=== PATIENT | male | born 1970 | race American Indian/Alaskan Native ===

== ENCOUNTER 2017-11-03 11:32 | Emergency (ER) | payer MEDICARE ==
[2017-11-03 11:32] VITALS: BMI 29.0
[2017-11-03 11:46] VITALS: RESP 18; O2SAT 98
[2017-11-03 12:41] LABS: BASO # 0.1 K/uL (0.0-0.2); BASO % 0.9 % (0.0-2.0); EOS # 0.1 K/uL (0.0-0.7); EOS % 1.8 % (0.0-4.0); HEMOGLOBIN 16.6 g/dL (12.0-18.0); LYMPH # 1.9 K/uL (1.0-4.3); MEAN CELL VOLUME 87.4 fL (80.0-94.0); MEAN CORPUSCULAR HEMOGLOBIN 29.9 pg (27.0-31.0); MEAN CORPUSCULAR HGB CONC 34.2 g/dL (33.0-37.0); MONO # 0.5 K/uL (0.0-0.8); MONO % 6.3 % (0.0-10.0); NEUT # 5.5 K/uL (1.8-7.0); NRBC % 0.1 % (0.0-2.0); RBC 5.54 Mil/uL (4.40-5.90); RED CELL DISTRIBUTION WIDTH 14.8 % (11.5-14.5); WHITE BLOOD COUNT 8.1 K/uL (4.8-10.8)
--- NOTE | 2017-11-03 12:42 | C.PDOC ---
History Of Present Illness 47yo male with history of CHF, presents to ER with complaint of increasing abdominal distention for the past week. He denies any history of abdominal surgeries and states he does not have abdominal pain. He also denies any nausea , vomiting and diarrhea and states he had a normal bowel movement this morning. Patient does report occasional shortness of breath over the past week and states he has been noncompliant with his CHF medication. He denies any chest pain or fevers. He offers no other medical complaints. Time Seen by Provider: 11/03/17 11:46 Chief Complaint (Nursing): Abdominal Pain History Per: Patient History/Exam Limitations: no limitations Onset/Duration Of Symptoms: Days (1 week) Current Symptoms Are (Timing): Still Present Associated Symptoms: denies: Fever, Chest Pain Past Medical History Reviewed: Historical Data, Nursing Documentation, Vital Signs Vital Signs: Last Vital Signs Temp 97.9 F 11/03/17 11:43 Pulse 86 11/03/17 11:43 Resp 18 11/03/17 12:10 BP 128/92 H 11/03/17 11:43 Pulse Ox 98 11/03/17 12:45 - Medical History PMH: Asthma, Bronchitis, CAD, Cardia Arrhythmia, CHF, HTN, Sleep Apnea Denies: Chronic Kidney Disease Surgical History: Pacemaker (AICD) - [employer] Procedures INSERTION OF INFUSION DEV INTO SUP VENA CAVA, PERC APPROACH (07/17/16) ULTRASONOGRAPHY OF SUPERIOR VENA CAVA, GUIDANCE (07/17/16) Family History: States: No Known Family Hx, Unknown Family Hx - Social History Hx Tobacco Use: Yes Hx Alcohol Use: No Hx Substance Use: No - Immunization History Hx Tetanus Toxoid Vaccination: No Hx Influenza Vaccination: No Hx Pneumococcal Vaccination: No Review Of Systems Except As Marked, All Systems Reviewed And Found Negative. Constitutional: Negative for: Fever, Chills Cardiovascular: Negative for: Chest Pain Respiratory: Positive for: Shortness of Breath (occasional episodes for past week) Gastrointestinal: Positive for: Other (abdominal distention x 1 week). Negative for: Nausea, Vomiting, Abdominal Pain, Diarrhea Physical Exam - Physical Exam Appears: Non-toxic, No Acute Distress Skin: Normal Color Eye(s): bilateral: Normal Inspection Neck: Normal ROM, Supple Chest: Symmetrical Cardiovascular: Rhythm Regular Respiratory: Normal Breath Sounds, No Wheezing Gastrointestinal/Abdominal: Soft, No Tenderness, Distention (abdomen obese, mild distention noted) Neurological/Psych: Oriented x3 ED Course And Treatment - Laboratory Results Result Diagrams: 11/03/17 12:33 11/03/17 12:33 O2 Sat by Pulse Oximetry: 98 (RA) Pulse Ox Interpretation: Normal Progress Note: XR obstructive series, labs ordered. Disposition Counseled Patient/Family Regarding: Studies Performed, Diagnosis, Need For Followup - Disposition Referrals: Derick Murphy MD [Staff Provider] - Disposition: HOME/ ROUTINE Disposition Time: 14:00 Condition: STABLE Additional Instructions: FOLLOW UP WITH YOUR DOCTOR IN 1-2 DAYS TAKE YOUR MEDICATIONS DIRECTED RETURN TO ER IF SYMPTOMS WORSEN Forms: [facility] (Armenian), General Discharge Instructions Print Language: TURKMEN - POA Present On Arrival: None - Clinical Impression Clinical Impression: Abdominal distension - Scribe Statement The provider has reviewed the documentation as recorded by the Scribe (Melisa Sellers) Provider Attestation: All medical record entries made by the Scribe were at my direction and personally dictated by me. I have reviewed the chart and agree that the record accurately reflects my personal performance of the history, physical exam, medical decision making, and the department course for this patient. I have also personally directed, reviewed, and agree with the discharge instructions and disposition.
[2017-11-03 12:46] LABS: URINE BILIRUBIN NEGATIVE (NEGATIVE); URINE BLOOD 1+ (NEGATIVE); URINE CLARITY Clear (Clear); URINE COLOR Yellow (YELLOW); URINE GLUCOSE (UA) NORMAL (Normal); URINE LEUKOCYTE ESTERASE NEG Leu/uL (Negative); URINE NITRATE NEGATIVE (NEGATIVE); URINE PROTEIN NEGATIVE (NEGATIVE); URINE UROBILINOGEN NORMAL mg/dL (0.2-1.0)
[2017-11-03 12:54] LABS: PROTHROMBIN TIME 11.2 SECONDS (9.7-12.2)
[2017-11-03 12:59] LABS: ALB/GLOB RATIO 1.2 (1.0-2.1); ALT/SGPT 28 U/L (21-72); AST/SGOT 28 U/L (17-59); BLOOD UREA NITROGEN 19 mg/dL (9-20); CALCIUM 9.6 mg/dl (8.6-10.4); GFR AFRICAN-AMERICAN > 60; GFR NON-AFRICAN AMERICAN 51
--- NOTE | 2017-11-03 13:05 | RAD ---
PROCEDURE: Radiographs of the chest and abdomen (obstructive series) HISTORY: ABDOMINAL DISTENSION COMPARISON: None TECHNIQUE: AP radiograph of the chest, with upright and supine radiographs of the abdomen. FINDINGS: CHEST: Heart size appears top normal. Single lead left-sided AICD. No focal consolidation. No pleural effusion. No pneumothorax. Please note that chest x-ray has limited sensitivity for the detection of pulmonary masses. ABDOMEN AND PELVIS: Nonobstructive bowel gas pattern. No definite free air. Mild elevation of the right hemidiaphragm. No acute osseous abnormality is detected. IMPRESSION: No acute findings identified. See above.
[2017-11-03 13:07] LABS: B-TYPE NATRIURETIC PEPTIDE 575 pg/mL (0-450); CK-MB 0.79 ng/mL (0.0-3.38)
[2017-11-03 14:12] VITALS: BP 123/84; PULSE 77; TEMP 98.2
== END 2017-11-03 14:10 | disposition home or self-care (01) ==
LOC: C.ER 11:32
DX: R14.0 Abdominal distension (gaseous) (principal); I11.0 Hypertensive heart disease with heart failure; I50.9 Heart failure, unspecified; F17.210 Nicotine dependence, cigarettes, uncomplicated

== ENCOUNTER 2018-02-08 08:50 | Emergency (ER) | payer MEDICARE ==
[2018-02-08 08:51] VITALS: BMI 29.0
[2018-02-08 09:01] VITALS: O2SAT 99
--- NOTE | 2018-02-08 09:54 | C.PDOC ---
History Of Present Illness 36-yfyid-eyl male with Hx of HTN, CHF, and implanted defibrillator for 11 years presents to ED for complaints of SOB, abdominal cramping, and cough associated with phlegm that began today. Denies headache, sore throat, chest pain, or throat itchiness or scratchiness. 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 Patient also states Hx of smoking and occasional drinking. Time Seen by Provider: 02/08/18 09:29 Chief Complaint (Nursing): Palpitations History Per: Patient History/Exam Limitations: no limitations Onset/Duration Of Symptoms: Hrs Current Symptoms Are (Timing): Still Present Recent travel outside of the [place]: No Past Medical History Reviewed: Historical Data, Nursing Documentation, Vital Signs Vital Signs: Last Vital Signs Temp 98.4 F 02/08/18 13:12 Pulse 82 02/08/18 13:12 Resp 18 02/08/18 13:12 BP 136/90 02/08/18 13:12 Pulse Ox 99 02/08/18 13:12 - Medical History PMH: Asthma, Bronchitis, CAD, Cardia Arrhythmia, CHF, HTN, Sleep Apnea Surgical History: Pacemaker (AICD) - [employer] Procedures INSERTION OF INFUSION DEV INTO SUP VENA CAVA, PERC APPROACH (07/17/16) ULTRASONOGRAPHY OF SUPERIOR VENA CAVA, GUIDANCE (07/17/16) Family History: States: Unknown Family Hx - Social History Hx Tobacco Use: Yes Hx Alcohol Use: Yes Hx Substance Use: No - Immunization History Hx Tetanus Toxoid Vaccination: No Hx Influenza Vaccination: No Hx Pneumococcal Vaccination: No Review Of Systems Constitutional: Negative for: Fever, Chills Cardiovascular: Negative for: Chest Pain Respiratory: Positive for: Cough (with phlegm ), Shortness of Breath Gastrointestinal: Positive for: Abdominal Pain. Negative for: Nausea, Vomiting , Diarrhea Genitourinary: Negative for: Dysuria Skin: Negative for: Rash Neurological: Negative for: Weakness, Numbness, Headache Physical Exam - Physical Exam Appears: Non-toxic, No Acute Distress Skin: Warm, Dry Head: Atraumatic, Normacephalic Eye(s): bilateral: Normal Inspection, PERRL, EOMI Oral Mucosa: Moist Neck: Supple Chest: Symmetrical, No Tenderness Cardiovascular: Rhythm Regular, No Murmur Respiratory: Decreased Breath Sounds (at bases), No Rales, No Rhonchi, No Wheezing Gastrointestinal/Abdominal: Soft, No Tenderness Extremity: Normal ROM, No Pedal Edema Extremity: Bilateral: Normal Color And Temperature, Normal ROM Neurological/Psych: Oriented x3, Normal Speech, Normal Cognition Gait: Steady ED Course And Treatment - Laboratory Results Result Diagrams: 02/08/18 10:16 02/08/18 10:16 O2 Sat by Pulse Oximetry: 99 (RA) Pulse Ox Interpretation: Normal - Other Rad CXR X-Ray: Viewed By Me, Read By Radiologist Interpretation: PROCEDURE: CHEST RADIOGRAPH, 1 VIEW. HISTORY: SOB. COMPARISON: Chest radiographs 07/17/2016. FINDINGS: LUNGS: No acute pulmonary disease appreciated bilaterally. PLEURA: No pneumothorax or pleural fluid seen. CARDIOVASCULAR: Cardiomegaly reiterated. Parotid pacemaker/ implanted defibrillator again identified. OSSEOUS STRUCTURES: No significant abnormalities. VISUALIZED UPPER ABDOMEN: Normal. OTHER FINDINGS: None. IMPRESSION: Stable cardiomegaly. No interval acute cardiopulmonary disease appreciable. Medical Decision Making Medical Decision Making: Ordered blood work, EKG, and CXR. Disposition Counseled Patient/Family Regarding: Studies Performed, Diagnosis, Need For Followup - Disposition Referrals: Rao Murphy MD [Staff Provider] - Disposition: HOME/ ROUTINE Disposition Time: 12:10 Condition: STABLE Instructions: Heart Failure, Adult (DC) Forms: [facility] (Occitan), General Discharge Instructions - POA Present On Arrival: None - Clinical Impression Clinical Impression: Chronic CHF - Scribe Statement The provider has reviewed the documentation as recorded by the Scribe Candice Bergman All medical record entries made by the Scribe were at my direction and personally dictated by me. I have reviewed the chart and agree that the record accurately reflects my personal performance of the history, physical exam, medical decision making, and the department course for this patient. I have also personally directed, reviewed, and agree with the discharge instructions and disposition.
[2018-02-08 10:18] LABS: BASO # 0.1 K/uL (0.0-0.2); BASO % 0.7 % (0.0-2.0); EOS # 0.1 K/uL (0.0-0.7); EOS % 1.1 % (0.0-4.0); HEMOGLOBIN 15.8 g/dL (12.0-18.0); LYMPH # 1.4 K/uL (1.0-4.3); LYMPH % 17.7 % (20.0-40.0); MEAN CELL VOLUME 87.1 fL (80.0-94.0); MEAN CORPUSCULAR HEMOGLOBIN 30.3 pg (27.0-31.0); MEAN CORPUSCULAR HGB CONC 34.7 g/dL (33.0-37.0); MEAN PLATELET VOLUME 8.9 fL (7.2-11.7); MONO # 0.5 K/uL (0.0-0.8); MONO % 6.5 % (0.0-10.0); NEUT # 5.9 K/uL (1.8-7.0); RBC 5.21 Mil/uL (4.40-5.90); RED CELL DISTRIBUTION WIDTH 14.3 % (11.5-14.5)
[2018-02-08 10:30] LABS: ALB/GLOB RATIO 1.2 (1.0-2.1); ALT/SGPT 31 U/L (21-72); AST/SGOT 45 U/L (17-59); BLOOD UREA NITROGEN 22 mg/dL (9-20); CALCIUM 9.3 mg/dl (8.6-10.4); GFR AFRICAN-AMERICAN > 60; GFR NON-AFRICAN AMERICAN 55
[2018-02-08 10:42] LABS: B-TYPE NATRIURETIC PEPTIDE 779 pg/mL (0-450)
[2018-02-08] MEDS ORDERED: Aluminum Hydroxide/Magnesium Hydroxide Susp (30 mL) PO STA (11:47)
[2018-02-08] MEDS ORDERED: Alum-Mag Hydrox-Simethicone Susp (30 mL) ONE (11:51)
--- NOTE | 2018-02-08 13:04 | RAD ---
PROCEDURE: CHEST RADIOGRAPH, 1 VIEW HISTORY: SOB COMPARISON: Chest radiographs 07/17/2016. FINDINGS: LUNGS: No acute pulmonary disease appreciated bilaterally. PLEURA: No pneumothorax or pleural fluid seen. CARDIOVASCULAR: Cardiomegaly reiterated. Parotid pacemaker/implanted defibrillator again identified. OSSEOUS STRUCTURES: No significant abnormalities. VISUALIZED UPPER ABDOMEN: Normal. OTHER FINDINGS: None. IMPRESSION: Stable cardiomegaly. No interval acute cardiopulmonary disease appreciable.
[2018-02-08 13:12] VITALS: BP 136/90; PULSE 82; RESP 18; TEMP 98.4
== END 2018-02-08 13:12 | disposition home or self-care (01) ==
LOC: C.ER 08:50
DX: I11.0 Hypertensive heart disease with heart failure (principal); I50.9 Heart failure, unspecified; Z95.810 Presence of automatic (implantable) cardiac defibrillator; F17.210 Nicotine dependence, cigarettes, uncomplicated
CPT/HCPCS: 71045; 80053; 83880; 84484; 85025; 96374; 99285; J1940

== ENCOUNTER 2018-09-20 10:40 | Emergency (ER) | payer MEDICARE ==
[2018-09-20 10:41] VITALS: BMI 29.0
[2018-09-20 11:58] LABS: BASO # 0.1 K/uL (0.0-0.2); BASO % 0.8 % (0.0-2.0); EOS # 0.1 K/uL (0.0-0.7); EOS % 1.8 % (0.0-4.0); HEMOGLOBIN 15.2 g/dL (12.0-18.0); LYMPH # 1.5 K/uL (1.0-4.3); LYMPH % 18.2 % (20.0-40.0); MEAN CELL VOLUME 90.6 fL (80.0-94.0); MEAN CORPUSCULAR HEMOGLOBIN 30.3 pg (27.0-31.0); MEAN CORPUSCULAR HGB CONC 33.4 g/dL (33.0-37.0); MEAN PLATELET VOLUME 9.3 fL (7.2-11.7); MONO # 0.5 K/uL (0.0-0.8); MONO % 5.6 % (0.0-10.0); NEUT # 6.2 K/uL (1.8-7.0); NEUT % 73.6 % (50.0-75.0); NRBC % 0.1 % (0.0-2.0); RBC 5.03 Mil/uL (4.40-5.90); RED CELL DISTRIBUTION WIDTH 14.5 % (11.5-14.5); WHITE BLOOD COUNT 8.4 K/uL (4.8-10.8)
--- NOTE | 2018-09-20 12:13 | C.PDOC ---
History Of Present Illness 48 year old male with a history of asthma and CHF (not on Lasix) presents to the emergency department with complaints of shortness of breath for the last 2 days intermittently. Patient states that his symptoms are not assorted with exertion or laying flat, and he denies cough, fever, chest pain, and leg edema. Time Seen by Provider: 09/20/18 11:02 Chief Complaint (Nursing): Shortness Of Breath History Per: Patient History/Exam Limitations: no limitations Onset/Duration Of Symptoms: Days (2), Intermittent Episodes Current Symptoms Are (Timing): Still Present Associated Symptoms: Other (shortness of breath). denies: Fever, Chest Pain, Bloody Cough, Productive Cough, Ankle/Leg Swelling Past Medical History Reviewed: Historical Data, Nursing Documentation, Vital Signs Vital Signs: Last Vital Signs Temp 97.4 F L 09/20/18 10:52 Pulse 77 09/20/18 10:52 Resp 18 09/20/18 10:52 BP 110/74 09/20/18 10:52 Pulse Ox 97 09/20/18 10:52 - Medical History PMH: Asthma, Bronchitis, CAD, Cardia Arrhythmia, CHF, HTN, Sleep Apnea Denies: Chronic Kidney Disease Surgical History: Pacemaker (AICD) - [facility] Procedures INSERTION OF INFUSION DEV INTO SUP VENA CAVA, PERC APPROACH (07/17/16) ULTRASONOGRAPHY OF SUPERIOR VENA CAVA, GUIDANCE (07/17/16) Family History: States: No Known Family Hx - Social History Hx Tobacco Use: Yes Hx Alcohol Use: Yes Hx Substance Use: No - Immunization History Hx Tetanus Toxoid Vaccination: No Hx Influenza Vaccination: No Hx Pneumococcal Vaccination: No Review Of Systems Constitutional: Negative for: Fever, Chills Cardiovascular: Negative for: Chest Pain, Edema Respiratory: Positive for: Shortness of Breath. Negative for: Cough Physical Exam - Physical Exam Appears: Non-toxic, No Acute Distress Skin: Normal Color, Warm, Dry Head: Atraumatic, Normacephalic Eye(s): bilateral: Normal Inspection, PERRL, EOMI Oral Mucosa: Moist Neck: Normal, Supple Chest: Symmetrical, No Tenderness, Other (left upper chest wall pacemaker) Cardiovascular: Rhythm Regular, No Murmur Respiratory: Normal Breath Sounds, No Rales, No Rhonchi, No Wheezing, Other (speaking in full sentences) Gastrointestinal/Abdominal: Soft, No Tenderness Extremity: Normal ROM, No Tenderness, No Pedal Edema, No Swelling Neurological/Psych: Oriented x3, Normal Speech, Normal Cognition ED Course And Treatment - Laboratory Results Result Diagrams: 09/20/18 11:54 09/20/18 11:54 ECG: Interpreted By Me, Viewed By Me ECG Rhythm: Sinus Rhythm ECG Interpretation: Abnormal Interpretation Of ECG: Normal sinus rhythm at 77bpm. Normal axis. T-wave inversion in 2, 3, AVL, AVG, V4, V5, V6. No acute ST changes. Rate From EC O2 Sat by Pulse Oximetry: 97 - Other Rad CXR X-Ray: Viewed By Me, Read By Radiologist Interpretation: IMPRESSION: Cardiomegaly. Single lead left-sided AICD. Progress Note: Plan: EKG. Chemistry. CBC. CXR Disposition Counseled Patient/Family Regarding: Studies Performed, Diagnosis, Need For Followup, Rx Given - Disposition Referrals: Rao Murphy MD [Staff Provider] - Derick Murphy MD [Staff Provider] - Disposition: HOME/ ROUTINE Disposition Time: 14:40 Condition: STABLE Additional Instructions: FOLLOW UP WITH YOUR DOCTOR IN 1-2 DAYS USE MEDICATION DAILY RETURN TO ER IF SYMPTOMS WORSEN Prescriptions: Furosemide [Lasix] 20 mg PO DAILY #30 tab Instructions: Heart Failure, Adult (DC) Forms: [facility] (Jordanian) Print Language: IVORIAN - Clinical Impression Clinical Impression: CHF (congestive heart failure) - Scribe Statement The provider has reviewed the documentation as recorded by the Scribe (Shane Mcarthur) Provider Attestation: All medical record entries made by the Scribe were at my direction and personally dictated by me. I have reviewed the chart and agree that the record accurately reflects my personal performance of the history, physical exam, medical decision making, and the department course for this patient. I have also personally directed, reviewed, and agree with the discharge instructions and disposition.
--- NOTE | 2018-09-20 12:16 | RAD ---
HISTORY: SOB COMPARISON: Chest x-ray performed 02/08/18 TECHNIQUE: Chest, one view. FINDINGS: LUNGS: No focal consolidation. Please note that chest x-ray has limited sensitivity for the detection of pulmonary masses. PLEURA: No significant pleural effusion identified. No definite pneumothorax . CARDIOVASCULAR: Single lead left-sided AICD. Cardiomegaly. No significant atherosclerotic calcification present. OSSEOUS STRUCTURES: No acute osseous abnormality identified. VISUALIZED UPPER ABDOMEN: Unremarkable. OTHER FINDINGS: None. IMPRESSION: Cardiomegaly. Single lead left-sided AICD.
[2018-09-20 12:19] LABS: ALB/GLOB RATIO 1.4 (1.0-2.1); ALBUMIN 3.5 g/dL (3.5-5.0); ALT/SGPT 35 U/L (21-72); AST/SGOT 28 U/L (17-59); BLOOD UREA NITROGEN 24 mg/dL (9-20); CALCIUM 8.5 mg/dl (8.6-10.4); GFR NON-AFRICAN AMERICAN 50
[2018-09-20 12:47] LABS: B-TYPE NATRIURETIC PEPTIDE 1850 pg/mL (0-450)
[2018-09-20 14:58] VITALS: BP 124/76; PULSE 76; RESP 20; TEMP 98.2; O2SAT 98
--- NOTE | 2018-09-21 16:13 | CARD ---
APPROVED REPORT Date of service: 09/20/2018 EKG Measurement Heart [id number] <Conclusion> Normal sinus rhythm Possible Left atrial enlargement Left ventricular hypertrophy T wave abnormality, consider inferolateral ischemia Prolonged QT Abnormal ECG
--- NOTE | 2018-09-21 16:13 | CARD ---
APPROVED REPORT Date of service: 09/20/2018 EKG Measurement Heart [id number] <Conclusion> Normal sinus rhythm Possible Left atrial enlargement Left ventricular hypertrophy T wave abnormality, consider inferolateral ischemia Prolonged QT Abnormal ECG
== END 2018-09-20 14:58 | disposition home or self-care (01) ==
LOC: C.ER 10:40
DX: I50.9 Heart failure, unspecified (principal); I10 Essential (primary) hypertension; I25.10 Atherosclerotic heart disease of native coronary artery without angina pectoris; Z72.0 Tobacco use
CPT/HCPCS: 71045; 80053; 82550; 82553; 83880; 84484; 85025; 93005; 96374; 99284; J1940

== ENCOUNTER 2018-12-26 03:28 | Emergency (ER) | payer MEDICARE ==
[2018-12-26 03:28] VITALS: BMI 29.0
--- NOTE | 2018-12-26 03:45 | C.PDOC ---
History Of Present Illness 48 year old male presents to the ED c/o SOB associated with non productive cough for the past 4 days. Patient also reports he also ran out of his medications 4 days ago as well. Patient speaking in full sentences. Patient denies fever, chills, headache, CP, palpitations, headache, weakness, numbness. Time Seen by Provider: 12/26/18 03:45 Chief Complaint (Nursing): Shortness Of Breath History Per: Patient History/Exam Limitations: no limitations Onset/Duration Of Symptoms: Days (4) Current Symptoms Are (Timing): Still Present Initiating Event: Out Of Medications Quality: Tightness Exacerbating Factor(s): Coughing Current Respiratory Medications: See Home Med List Associated Symptoms: Productive Cough (non) Recent travel outside of the [place]: No Additional History Per: Patient Past Medical History Reviewed: Historical Data, Nursing Documentation, Vital Signs Vital Signs: Last Vital Signs Temp 98.5 F 12/26/18 03:34 Pulse 98 H 12/26/18 03:34 Resp 16 12/26/18 03:34 BP 139/105 H 12/26/18 03:34 Pulse Ox 97 12/26/18 03:34 - Medical History PMH: Asthma, Bronchitis, CAD, Cardia Arrhythmia, CHF, HTN, Sleep Apnea Denies: Chronic Kidney Disease Surgical History: Pacemaker (AICD) - [facility] Procedures INSERTION OF INFUSION DEV INTO SUP VENA CAVA, PERC APPROACH (07/17/16) ULTRASONOGRAPHY OF SUPERIOR VENA CAVA, GUIDANCE (07/17/16) Family History: States: Unknown Family Hx - Social History Hx Tobacco Use: Yes Hx Alcohol Use: Yes Hx Substance Use: No - Immunization History Hx Tetanus Toxoid Vaccination: No Hx Influenza Vaccination: No Hx Pneumococcal Vaccination: No Review Of Systems Constitutional: Negative for: Fever, Chills Cardiovascular: Negative for: Chest Pain, Palpitations Respiratory: Positive for: Cough, Shortness of Breath. Negative for: Sputum Gastrointestinal: Negative for: Nausea, Vomiting, Abdominal Pain Skin: Negative for: Rash Neurological: Negative for: Weakness, Numbness, Headache, Dizziness Physical Exam - Physical Exam Appears: Non-toxic, No Acute Distress Skin: Warm, Dry Head: Normacephalic Eye(s): bilateral: Normal Inspection Neck: Supple Chest: Symmetrical Cardiovascular: Rhythm Regular Respiratory: No Rales, Rhonchi (scattered), No Wheezing Gastrointestinal/Abdominal: Soft, No Tenderness, No Guarding, No Rebound Extremity: Bilateral: Atraumatic, Normal Color And Temperature, Normal ROM Neurological/Psych: Oriented x3, Normal Speech, Normal Cognition Gait: Steady ED Course And Treatment - Laboratory Results Result Diagrams: 12/26/18 04:12 12/26/18 04:12 ECG: Interpreted By Me, Viewed By Me ECG Rhythm: Sinus Rhythm (95), Nonspecific Changes (unchanged from 09/30/18) O2 Sat by Pulse Oximetry: 97 (ON RA) Pulse Ox Interpretation: Normal - Radiology CXR: Interpreted by Me, Viewed By Me CXR Interpretation: Yes: Infiltrates (rll), Cardiomegaly, Other (pacer left chest). No: Fracture Progress Note: Plan: - VBG. - EKG. - Labs. - CXR. - Blood culture. - UA Reevaluation Time: 06:30 Reassessment Condition: Improved Disposition Counseled Patient/Family Regarding: Studies Performed, Diagnosis, Need For Followup, Rx Given - Disposition Referrals: Derick Murphy MD [Staff Provider] - Disposition: HOME/ ROUTINE Disposition Time: 03:45 Condition: FAIR Additional Instructions: Please return if symptoms recur Prescriptions: Azithromycin [Zithromax Tri-Suresh] 500 mg PO DAILY #3 tablet Carvedilol [Coreg] 6.25 mg PO BID #60 tab Furosemide [Lasix] 20 mg PO DAILY #30 tablet Sacubitril/Valsartan [Entresto 49 mg-51 mg Tablet] 1 each PO DAILY #30 tablet Instructions: High Blood Pressure (DC), Acute Bronchitis, Adult (DC) Forms: [facility] (Venezuelan) - Clinical Impression Clinical Impression: Bronchitis, Hypertension - Scribe Statement The provider has reviewed the documentation as recorded by the Scribe Raphael Vega All medical record entries made by the Scribe were at my direction and personally dictated by me. I have reviewed the chart and agree that the record accurately reflects my personal performance of the history, physical exam, medical decision making, and the department course for this patient. I have also personally directed, reviewed, and agree with the discharge instructions and disposition.
[2018-12-26 04:20] LABS: BASO # 0.1 K/uL (0.0-0.2); BASO % 1.4 % (0.0-2.0); EOS # 0.1 K/uL (0.0-0.7); EOS % 1.3 % (0.0-4.0); HEMOGLOBIN 14.4 g/dL (12.0-18.0); LYMPH # 1.6 K/uL (1.0-4.3); LYMPH % 19.4 % (20.0-40.0); MEAN CELL VOLUME 90.7 fL (80.0-94.0); MEAN CORPUSCULAR HEMOGLOBIN 30.4 pg (27.0-31.0); MEAN CORPUSCULAR HGB CONC 33.5 g/dL (33.0-37.0); MEAN PLATELET VOLUME 9.1 fL (7.2-11.7); MONO # 0.4 K/uL (0.0-0.8); MONO % 5.5 % (0.0-10.0); NEUT # 5.9 K/uL (1.8-7.0); NEUT % 72.4 % (50.0-75.0); NRBC % 0.1 % (0.0-2.0); RBC 4.75 Mil/uL (4.40-5.90); RED CELL DISTRIBUTION WIDTH 14.9 % (11.5-14.5); WHITE BLOOD COUNT 8.1 K/uL (4.8-10.8)
[2018-12-26 04:26] LABS: INR 1.1; PROTHROMBIN TIME 12.4 SECONDS (9.7-12.2)
[2018-12-26 04:28] LABS: ALB/GLOB RATIO 1.5 (1.0-2.1); ALBUMIN 3.5 g/dL (3.5-5.0); CALCIUM 9.1 mg/dl (8.6-10.4)
[2018-12-26] MEDS ORDERED: Piperacillin/Tazobact 3.375 gm 100 ML IVPB STA (04:46)
[2018-12-26 04:51] LABS: VENOUS BLOOD GAS BASE EXCESS -0.5 mmol/L (0.0-2.0); VENOUS BLOOD GAS PCO2 39 mmHg (40-60); VENOUS BLOOD GAS PO2 44 mm/Hg (30-55)
[2018-12-26] MEDS ORDERED: Piperacillin/Tazobact 3.375 gm 100 ML IVPB ONE (04:52)
[2018-12-26 05:55] VITALS: BP 119/87; PULSE 79; RESP 22; TEMP 98.4
[2018-12-26 06:33] VITALS: O2SAT 97
--- NOTE | 2018-12-26 08:33 | RAD ---
Chest x-ray single frontal view History: Shortness of breath. Comparison: 07/17/2016 Findings: Confluent increased markings in the right hilar region extending to medial right lower lung zone concerning for possible infiltrate. Post treatment interval follow-up may be helpful to ensure resolution and exclude underlying residual disease. Additional patchy increased markings at the left lung base. Cardiomegaly. Left-sided pacemaker. Degenerative changes in the spine. Impression: Confluent increased markings in the right hilar region extending to medial right lower lung zone concerning for possible infiltrate. Post treatment interval follow-up may be helpful to ensure resolution and exclude underlying residual disease. Additional patchy increased markings at the left lung base. Cardiomegaly. Left-sided pacemaker.
--- NOTE | 2018-12-29 15:40 | CARD ---
APPROVED REPORT Date of service: 12/26/2018 EKG Measurement Heart [id number] <Conclusion> Sinus rhythm with occasional premature ventricular complexes Possible Left atrial enlargement Left ventricular hypertrophy with repolarization abnormality Abnormal ECG
== END 2018-12-26 06:52 | disposition home or self-care (01) ==
LOC: C.ER 03:28
DX: J40 Bronchitis, not specified as acute or chronic (principal); I10 Essential (primary) hypertension; I50.9 Heart failure, unspecified; I25.10 Atherosclerotic heart disease of native coronary artery without angina pectoris; Z72.0 Tobacco use; Z95.810 Presence of automatic (implantable) cardiac defibrillator
CPT/HCPCS: 71045; 80053; 82803; 85025; 85610; 85730; 87040; 93005; 96365; 99285; J2543

== ENCOUNTER 2018-12-29 04:59 | Emergency (ER) | payer MEDICARE ==
[2018-12-29 04:59] VITALS: BMI 29.0
[2018-12-29] MEDS ORDERED: Albuterol 0.083% Inhal Sol (2.5 mg/3 mL) UD ONE (05:06)
--- NOTE | 2018-12-29 05:25 | C.PDOC ---
History Of Present Illness Patient presents with SOB. He was seen here with similar symptoms a few days ago and started on meds, however, he did not take them except for some of the antibiotics. Patient still smokes. Denies chest pain, fever, or chills. Time Seen by Provider: 12/29/18 05:25 Chief Complaint (Nursing): Shortness Of Breath History Per: Patient History/Exam Limitations: no limitations Onset/Duration Of Symptoms: Hrs Current Symptoms Are (Timing): Still Present Current Respiratory Medications: See Home Med List Severity: Moderate Pain Scale Rating Of: 4 Associated Symptoms: denies: Fever, Chills, Chest Pain Recent travel outside of the [place]: No Past Medical History Reviewed: Historical Data, Nursing Documentation, Vital Signs - Medical History PMH: Asthma, Bronchitis, CAD, Cardia Arrhythmia, CHF, HTN, Sleep Apnea Denies: Chronic Kidney Disease Surgical History: Pacemaker (AICD) - [employer] Procedures INSERTION OF INFUSION DEV INTO SUP VENA CAVA, PERC APPROACH (07/17/16) ULTRASONOGRAPHY OF SUPERIOR VENA CAVA, GUIDANCE (07/17/16) Family History: States: No Known Family Hx - Social History Hx Tobacco Use: Yes Hx Alcohol Use: Yes Hx Substance Use: No - Immunization History Hx Tetanus Toxoid Vaccination: No Hx Influenza Vaccination: No Hx Pneumococcal Vaccination: No Review Of Systems Constitutional: Negative for: Fever, Chills Cardiovascular: Negative for: Chest Pain, Palpitations Respiratory: Positive for: Shortness of Breath. Negative for: Cough Gastrointestinal: Negative for: Nausea, Vomiting Neurological: Negative for: Weakness, Numbness Physical Exam - Physical Exam Appears: Non-toxic Skin: Warm, Dry Head: Normacephalic Eye(s): bilateral: Normal Inspection Oral Mucosa: Moist Neck: Trachea Midline, Supple Chest: Symmetrical, No Tenderness Cardiovascular: Rhythm Regular Respiratory: No Rales, No Rhonchi, No Wheezing Gastrointestinal/Abdominal: Soft, No Tenderness Neurological/Psych: Oriented x3 ED Course And Treatment O2 Sat by Pulse Oximetry: 99 Pulse Ox Interpretation: Normal Progress Note: Duoneb administered. Reevaluation Time: 06:31 Reassessment Condition: Improved Disposition Counseled Patient/Family Regarding: Studies Performed, Diagnosis, Need For Followup - Disposition Disposition: HOME/ ROUTINE Disposition Time: 05:25 Condition: FAIR Additional Instructions: Please return if symptoms recur Instructions: Asthma, Adult (DC) Forms: [employer] (Swazi) - Clinical Impression Clinical Impression: Dyspnea - Scribe Statement The provider has reviewed the documentation as recorded by the Scribe Carlos Villeda All medical record entries made by the Scribe were at my direction and perso emily dictated by me. I have reviewed the chart and agree that the record accurately reflects my personal performance of the history, physical exam, medical decision making, and the department course for this patient. I have also personally directed, reviewed, and agree with the discharge instructions and disposition.
[2018-12-29 05:28] VITALS: BP 137/103; PULSE 96; TEMP 98; O2SAT 99
[2018-12-29] MEDS: Albuterol-Ipratrop 3 mg / 0.5 (3 ml) UD IH SCH ×2 (05:30→05:42)
[2018-12-29 05:31] VITALS: RESP 16
[2018-12-29] MEDS ORDERED: Albuterol-Ipratrop 3 mg / 0.5 (3 ml) UD ONE ×2 (05:42)
== END 2018-12-29 06:35 | disposition home or self-care (01) ==
LOC: C.ER 04:59
DX: R06.00 Dyspnea, unspecified (principal)

== ENCOUNTER 2019-01-25 15:53 | Observation (INO) | payer MEDICARE ==
[2019-01-25 15:53] VITALS: BMI 29.0
--- NOTE | 2019-01-25 17:03 | C.PDOC ---
History Of Present Illness 48 year old male presents to ED with complaint of SOB for the past week. Patient also complains of productive cough and abdominal distension for 2 days. 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 He has a PMHx of CAD, CHF, hypertension, and JOSE MARIA. Patient denies chest pain, palpitations, fever, nausea, vomiting, and diarrhea. Time Seen by Provider: 01/25/19 16:38 Chief Complaint (Nursing): Shortness Of Breath History Per: Patient History/Exam Limitations: no limitations Onset/Duration Of Symptoms: Days (7) Current Symptoms Are (Timing): Still Present Exacerbating Factor(s): Exertion Associated Symptoms: Productive Cough. denies: Fever, Chills, Chest Pain, Bloody Cough Past Medical History Reviewed: Historical Data, Nursing Documentation, Vital Signs Vital Signs: Last Vital Signs Temp 97.9 F 01/25/19 16:43 Pulse 92 H 01/25/19 16:43 Resp 22 01/25/19 16:43 BP 127/95 H 01/25/19 16:43 Pulse Ox 97 01/25/19 16:43 Primary Care Provider: Derick Murphy - Medical History PMH: Asthma, Bronchitis, CAD, Cardia Arrhythmia, CHF, HTN, Sleep Apnea Denies: Chronic Kidney Disease Surgical History: Pacemaker (AICD) - [facility] Procedures INSERTION OF INFUSION DEV INTO SUP VENA CAVA, PERC APPROACH (07/17/16) ULTRASONOGRAPHY OF SUPERIOR VENA CAVA, GUIDANCE (07/17/16) Family History: States: Unknown Family Hx - Social History Hx Tobacco Use: Yes Hx Alcohol Use: Yes Hx Substance Use: No - Immunization History Hx Tetanus Toxoid Vaccination: No Hx Influenza Vaccination: No Hx Pneumococcal Vaccination: No Review Of Systems Constitutional: Negative for: Fever, Chills, Weakness Cardiovascular: Negative for: Chest Pain, Palpitations Respiratory: Positive for: Cough, Shortness of Breath, Sputum Gastrointestinal: Positive for: Other (abdominal distension). Negative for: Nausea, Vomiting, Diarrhea Physical Exam - Physical Exam Appears: Non-toxic, Other (speaking full sentences, comfortable) Skin: Normal Color, Warm, Dry Head: Atraumatic, Normacephalic Neck: Normal ROM, Supple Chest: Symmetrical, No Deformity Cardiovascular: Murmur (4/6 holosystolic murmur) Respiratory: No Accessory Muscle Use, Rales (at the bases, left greater than right), No Rhonchi, No Wheezing Gastrointestinal/Abdominal: Soft, No Tenderness Extremity: Capillary Refill (<2 seconds), Other (+1 pitting edema of the bilateral lower extremities) Extremity: Bilateral: Atraumatic, Normal Color And Temperature, Normal ROM Pulses: Left Radial: Normal, Right Radial: Normal, Left Dorsalis Pedis: Normal, Right Dorsalis Pedis: Normal Neurological/Psych: Oriented x3, Normal Speech, Normal Cognition ED Course And Treatment - Laboratory Results Result Diagrams: 01/25/19 17:09 01/25/19 17:09 O2 Sat by Pulse Oximetry: 97 (RA) Pulse Ox Interpretation: Normal Progress Note: EKG and CXR ordered for patient. Labs ordered with cardiac enzymes for patient. Patient given Lasix IVP. Disposition - Disposition Forms: [facility] (Romansh) - Scribe Statement The provider has reviewed the documentation as recorded by the Scribe (Calista Schmidt) All medical record entries made by the Scribe were at my direction and personally dictated by me. I have reviewed the chart and agree that the record accurately reflects my personal performance of the history, physical exam, medical decision making, and the department course for this patient. I have also personally directed, reviewed, and agree with the discharge instructions and disposition.
[2019-01-25 17:18] LABS: BASO % 0.5 % (0.0-2.0); EOS # 0.1 K/uL (0.0-0.7); EOS % 1.3 % (0.0-4.0); HEMOGLOBIN 14.9 g/dL (12.0-18.0); LYMPH # 1.3 K/uL (1.0-4.3); LYMPH % 13.4 % (20.0-40.0); MEAN CELL VOLUME 91.9 fL (80.0-94.0); MEAN CORPUSCULAR HEMOGLOBIN 30.7 pg (27.0-31.0); MEAN CORPUSCULAR HGB CONC 33.5 g/dL (33.0-37.0); MEAN PLATELET VOLUME 8.8 fL (7.2-11.7); MONO # 0.7 K/uL (0.0-0.8); MONO % 7.9 % (0.0-10.0); NEUT # 7.3 K/uL (1.8-7.0); NEUT % 76.9 % (50.0-75.0); NRBC % 0.1 % (0.0-2.0); RBC 4.84 Mil/uL (4.40-5.90); RED CELL DISTRIBUTION WIDTH 15.3 % (11.5-14.5); WHITE BLOOD COUNT 9.4 K/uL (4.8-10.8)
[2019-01-25 17:29] LABS: INR 1.1; PARTIAL THROMBOPLASTIN TIME 32.7 SECONDS (21-34); PROTHROMBIN TIME 12.1 SECONDS (9.7-12.2)
[2019-01-25 17:45] LABS: ALB/GLOB RATIO 1.4 (1.0-2.1); ALBUMIN 3.4 g/dL (3.5-5.0); ALT/SGPT 55 U/L (21-72); AST/SGOT 44 U/L (17-59); BLOOD UREA NITROGEN 26 mg/dL (9-20); CALCIUM 8.8 mg/dl (8.6-10.4); GFR NON-AFRICAN AMERICAN 50
[2019-01-25 17:46] LABS: B-TYPE NATRIURETIC PEPTIDE 5890 pg/mL (0-450); CK-MB 2.45 ng/mL (0.0-3.38)
--- NOTE | 2019-01-25 19:03 | RAD ---
HISTORY: sob COMPARISON: Chest x-ray performed 12/26/18 TECHNIQUE: Chest, one view. FINDINGS: Examination limited by habitus. LUNGS: Small left effusion and or consolidation. Central vascular prominence/infiltrate. No definite pneumothorax. CARDIOVASCULAR: Cardiomegaly. Left-sided single lead AICD. OSSEOUS STRUCTURES: No acute osseous abnormality identified. VISUALIZED UPPER ABDOMEN: Unremarkable. OTHER FINDINGS: None. IMPRESSION: Small left effusion and or consolidation. Central vascular prominence/infiltrate. Cardiomegaly. Single lead left-sided AICD.
[2019-01-25] MEDS: Albuterol-Ipratrop 3 mg / 0.5 (3 ml) UD INH SCH (20:51)
[2019-01-26 02:43] VITALS: RESP 20
--- NOTE | 2019-01-26 07:55 | CP.PCM.CON ---
History of Present Illness - History of Present Illness History of Present Illness: CC shortness of breath HPI 48 year old male presents to ED with complaint of SOB for the past week. Patient also complains of productive cough and abdominal distension for 2 days. 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 . Patient denies chest pain, palpitations, fever, nausea, vom iting, and diarrhea. ROS sob, easy fatigability,orthopnea PMHx CAD, CHF, hypertension, JOSE MARIA. Review of Systems - Constitutional Constitutional: Weight Gain, Weakness - Cardiovascular Cardiovascular: Dyspnea on Exertion, Leg Edema - Respiratory Respiratory: Cough, Dyspnea on Exertion - Gastrointestinal Gastrointestinal: Bloating - Musculoskeletal Musculoskeletal: Muscle Weakness Past Patient History - Infectious Disease Hx of Infectious Diseases: None - Past Medical History & Family History Past Medical History?: Yes - Past Social History Smoking Status: Never Smoked - CARDIAC Hx Cardia Arrhythmia: Yes Hx Congestive Heart Failure: Yes Hx Hypertension: Yes Hx Pacemaker: Yes (AICD) - PULMONARY Hx Asthma: Yes Hx Bronchitis: Yes Hx Sleep Apnea: Yes - NEUROLOGICAL Hx Neurological Disorder: No - HEENT Hx HEENT Problems: No - RENAL Hx Chronic Kidney Disease: No - ENDOCRINE/METABOLIC Hx Endocrine Disorders: No - HEMATOLOGICAL/ONCOLOGICAL Hx Blood Disorders: No Hx Blood Transfusions: No - INTEGUMENTARY Hx Dermatological Problems: No - MUSCULOSKELETAL/RHEUMATOLOGICAL Hx Falls: No - GASTROINTESTINAL Hx Gastrointestinal Disorders: No - GENITOURINARY/GYNECOLOGICAL Hx Genitourinary Disorders: No - PSYCHIATRIC Hx Substance Use: No - SURGICAL HISTORY Hx Surgeries: Yes Hx Musculoskeletal Surgery: Yes (LEFT ELBOW SURGERY AT 15YRS OLD) Other/Comment: INSERTION OF DEFIBRILATOR - ANESTHESIA Hx Anesthesia: Yes Hx Anesthesia Reactions: No Hx Malignant Hyperthermia: No Has any member of the family had a problem w/ anesthesia?: No Meds Allergies/Adverse Reactions: Allergies Allergy/AdvReac Type Severity Reaction Status Date / Time No Known Allergies Allergy Verified 01/25/19 16:45 - Medications Medications: Current Medications Albuterol/Ipratropium (Duoneb 3 Mg/0.5 Mg (3 Ml) Ud) 3 ml INH RQID [facility] Last Admin: 01/25/19 20:51 Dose: 3 ml Carvedilol (Coreg) 12.5 mg PO BID [facility] Doxycycline Hyclate (Doryx) 100 mg PO Q12H [facility]; Protocol Last Admin: 01/25/19 21:47 Dose: 100 mg Sacubitril/Valsartan (Entresto 49 Mg-51 Mg) 1 tab PO BID [facility] Physical Exam - Constitutional Appears: Non-toxic - Head Exam Head Exam: NORMAL INSPECTION - Eye Exam Eye Exam: absent: Scleral icterus - ENT Exam ENT Exam: Mucous Membranes Moist - Neck Exam Neck exam: Positive for: Full Rom - Respiratory Exam Respiratory Exam: Decreased Breath Sounds - Cardiovascular Exam Cardiovascular Exam: REGULAR RHYTHM - GI/Abdominal Exam GI & Abdominal Exam: Soft - Extremities Exam Extremities exam: Positive for: pedal edema - Neurological Exam Neurological exam: Alert, Oriented x3 Results - Vital Signs Recent Vital Signs: Last Vital Signs Temp 98.0 F 01/26/19 07:15 Pulse 85 01/26/19 07:15 Resp 20 01/26/19 07:15 BP 141/100 H 01/26/19 07:15 Pulse Ox 95 01/26/19 07:15 - Labs Result Diagrams: 01/25/19 17:09 01/25/19 17:09 Labs: Laboratory Results - last 24 hr 01/25/19 01/25/19 01/25/19 17:09 17:09 17:09 WBC 9.4 RBC 4.84 Hgb 14.9 Hct 44.4 MCV 91.9 MCH 30.7 MCHC 33.5 RDW 15.3 H Plt Count 206 MPV 8.8 Neut % (Auto) 76.9 H Lymph % (Auto) 13.4 L [place] % (Auto) 7.9 Eos % (Auto) 1.3 Baso % (Auto) 0.5 Neut # (Auto) 7.3 H Lymph # (Auto) 1.3 [place] # (Auto) 0.7 Eos # (Auto) 0.1 Baso # (Auto) 0.0 PT 12.1 INR 1.1 APTT 32.7 Sodium 138 Potassium 4.6 Chloride 104 Carbon Dioxide 27 Anion Gap 12 BUN 26 H Creatinine 1.5 Est GFR ( Amer) > 60 Est GFR (Non-Af Amer) 50 Random Glucose 103 Calcium 8.8 Total Bilirubin 1.2 AST 44 ALT 55 Alkaline Phosphatase 65 Total Creatine Kinase 307 H CK-MB (Mass) 2.45 Troponin I 0.0320 NT-Pro-B Natriuret Pep 5890 H Total Protein 5.9 L Albumin 3.4 L Globulin 2.5 Albumin/Globulin Ratio 1.4 01/26/19 01:06 WBC RBC Hgb Hct MCV MCH MCHC RDW Plt Count MPV Neut % (Auto) Lymph % (Auto) [place] % (Auto) Eos % (Auto) Baso % (Auto) Neut # (Auto) Lymph # (Auto) [place] # (Auto) Eos # (Auto) Baso # (Auto) PT INR APTT Sodium Potassium Chloride Carbon Dioxide Anion Gap BUN Creatinine Est GFR ( Amer) Est GFR (Non-Af Amer) Random Glucose Calcium Total Bilirubin AST ALT Alkaline Phosphatase Total Creatine Kinase CK-MB (Mass) Troponin I 0.0290 NT-Pro-B Natriuret Pep Total Protein Albumin Globulin Albumin/Globulin Ratio Assessment & Plan - Assessment and Plan (Free Text) Assessment: CHF Dilated cardiomyopathy Plan: Diuresis Nebulizer tx Cont with Entresto, Carvedilol, ECHO KELLEN - Date & Time Date: 01/26/19 Time: 08:10
[2019-01-26] MEDS: Albuterol-Ipratrop 3 mg / 0.5 (3 ml) UD INH SCH ×4 (08:23→21:11)
--- NOTE | 2019-01-26 08:43 | CP.PCM.HP ---
History of Present Illness - History of Present Illness History of Present Illness: CC: Short of breath 48 y/o male with Asthma, Cardiomyopathy and sleep apnea. Patient has on/ off cough and treated in ER c/o pneumonia last month. Patient has increasing cough, with whitish mucus x 1 wk. Patient noted increasing shortness of breath & fatigue x 2 days. He went back to ER and admitted for CHF Present on Admission - Present on Admission Any Indicators Present on Admission: Yes History of DVT/PE: No History of Uncontrolled Diabetes: No Review of Systems - Review of Systems Systems not reviewed;Unavailable: Acuity of Condition - Constitutional Constitutional: Fatigue, Headache, Sleep Apnea. absent: Fever, Weight Loss - EENT Eyes: absent: Change in Vision, Exophthalmos, Spots in Vision, Loss of Vision Ears: absent: Ear Discharge, Ear Pain, Tinnitus, Disequilibrium Nose/Mouth/Throat: absent: Nasal Congestion, Nasal Discharge, Post Nasal Drip, Sinus Pressure, Change in Voice, Hoarsness, Sore Throat - Cardiovascular Cardiovascular: Dyspnea, Edema, Leg Edema, Palpitations. absent: Chest Pain, Diaphoresis, Leg Ulcers, Radiating Pain - Respiratory Respiratory: Cough, Excessive Mucous Production. absent: Pain on Inspiration, Chest Congestion, Pain with Coughing - Gastrointestinal Gastrointestinal: Abdominal Pain. absent: Coffee Ground Emesis, Diarrhea, Dyspepsia, Heartburn, Nausea, Vomiting - Genitourinary Genitourinary: absent: Dysuria, Hematuria, Pyuria, Urinary Hesitance - Musculoskeletal Musculoskeletal: Abnormal Gait, Back Pain. absent: Loss of Height, Myalgias - Integumentary Integumentary: absent: Dry Skin, Hirsutism, Rash - Neurological Neurological: absent: Abnormal Gait, Abnormal Movements, Behavioral Changes, Burning Sensations, Confusion, Focal Weakness, Loss of Vision, Restless Legs - Hematologic/Lymphatic Hematologic: absent: Easy Bleeding, Easy Bruising, Lymphadenopathy Past Patient History - Infectious Disease Hx of Infectious Diseases: None - Past Medical History & Family History Past Medical History?: Yes - Past Social History Smoking Status: Never Smoked - CARDIAC Hx Cardia Arrhythmia: Yes Hx Congestive Heart Failure: Yes Hx Hypertension: Yes Hx Pacemaker: Yes (AICD) - PULMONARY Hx Asthma: Yes Hx Bronchitis: Yes Hx Sleep Apnea: Yes - NEUROLOGICAL Hx Neurological Disorder: No - HEENT Hx HEENT Problems: No - RENAL Hx Chronic Kidney Disease: No - ENDOCRINE/METABOLIC Hx Endocrine Disorders: No - HEMATOLOGICAL/ONCOLOGICAL Hx Blood Disorders: No Hx Blood Transfusions: No - INTEGUMENTARY Hx Dermatological Problems: No - MUSCULOSKELETAL/RHEUMATOLOGICAL Hx Falls: No - GASTROINTESTINAL Hx Gastrointestinal Disorders: No - GENITOURINARY/GYNECOLOGICAL Hx Genitourinary Disorders: No - PSYCHIATRIC Hx Substance Use: No - SURGICAL HISTORY Hx Surgeries: Yes Hx Musculoskeletal Surgery: Yes (LEFT ELBOW SURGERY AT 15YRS OLD) Other/Comment: INSERTION OF DEFIBRILATOR - ANESTHESIA Hx Anesthesia: Yes Hx Anesthesia Reactions: No Hx Malignant Hyperthermia: No Has any member of the family had a problem w/ anesthesia?: No Meds Allergies/Adverse Reactions: Allergies Allergy/AdvReac Type Severity Reaction Status Date / Time No Known Allergies Allergy Verified 01/25/19 16:45 Physical Exam - Constitutional Appears: Well - Eye Exam Eye Exam: Normal appearance - ENT Exam ENT Exam: Mucous Membranes Moist - Neck Exam Neck exam: Positive for: Full Rom. Negative for: Lymphadenopathy, Normal Inspection - Respiratory Exam Respiratory Exam: Clear to Auscultation Bilateral. absent: Rales, Rhonchi, Wheezes - Cardiovascular Exam Cardiovascular Exam: REGULAR RHYTHM, +S1, +S2. absent: Gallop, JVD - GI/Abdominal Exam GI & Abdominal Exam: Soft. absent: Guarding, Tenderness - Extremities Exam Extremities exam: Positive for: full ROM, normal capillary refill. Negative for: calf tenderness, joint swelling, pedal edema Results - Vital Signs Recent Vital Signs: Last Vital Signs Temp 98.0 F 01/26/19 07:15 Pulse 85 01/26/19 07:15 Resp 20 01/26/19 07:15 BP 141/100 H 01/26/19 07:15 Pulse Ox 95 01/26/19 07:15 - Labs Result Diagrams: 01/25/19 17:09 01/25/19 17:09 Labs: Laboratory Results - last 24 hr 01/25/19 01/25/19 01/25/19 17:09 17:09 17:09 WBC 9.4 RBC 4.84 Hgb 14.9 Hct 44.4 MCV 91.9 MCH 30.7 MCHC 33.5 RDW 15.3 H Plt Count 206 MPV 8.8 Neut % (Auto) 76.9 H Lymph % (Auto) 13.4 L [place] % (Auto) 7.9 Eos % (Auto) 1.3 Baso % (Auto) 0.5 Neut # (Auto) 7.3 H Lymph # (Auto) 1.3 [place] # (Auto) 0.7 Eos # (Auto) 0.1 Baso # (Auto) 0.0 PT 12.1 INR 1.1 APTT 32.7 Sodium 138 Potassium 4.6 Chloride 104 Carbon Dioxide 27 Anion Gap 12 BUN 26 H Creatinine 1.5 Est GFR ( Amer) > 60 Est GFR (Non-Af Amer) 50 Random Glucose 103 Calcium 8.8 Total Bilirubin 1.2 AST 44 ALT 55 Alkaline Phosphatase 65 Total Creatine Kinase 307 H CK-MB (Mass) 2.45 Troponin I 0.0320 NT-Pro-B Natriuret Pep 5890 H Total Protein 5.9 L Albumin 3.4 L Globulin 2.5 Albumin/Globulin Ratio 1.4 01/26/19 01:06 WBC RBC Hgb Hct MCV MCH MCHC RDW Plt Count MPV Neut % (Auto) Lymph % (Auto) [place] % (Auto) Eos % (Auto) Baso % (Auto) Neut # (Auto) Lymph # (Auto) [place] # (Auto) Eos # (Auto) Baso # (Auto) PT INR APTT Sodium Potassium Chloride Carbon Dioxide Anion Gap BUN Creatinine Est GFR ( Amer) Est GFR (Non-Af Amer) Random Glucose Calcium Total Bilirubin AST ALT Alkaline Phosphatase Total Creatine Kinase CK-MB (Mass) Troponin I 0.0290 NT-Pro-B Natriuret Pep Total Protein Albumin Globulin Albumin/Globulin Ratio - EKG Data EKG Interpreted by: Myself EKG shows normal: Sinus rhythm, ST-T waves (same from 2016) Rate: Tachycardia Assessment & Plan - Assessment and Plan (Free Text) Assessment: Ac [id number]; Decompensated CHF Advise compliance to OPD f/up Conr meds Start Singulair and DVT prophy
[2019-01-26 08:49] LABS: ALB/GLOB RATIO 1.3 (1.0-2.1); ALBUMIN 3.4 g/dL (3.5-5.0); ALT/SGPT 63 U/L (21-72); AST/SGOT 56 U/L (17-59); BLOOD UREA NITROGEN 25 mg/dL (9-20); CALCIUM 8.8 mg/dl (8.6-10.4); GFR NON-AFRICAN AMERICAN 50
--- NOTE | 2019-01-26 09:11 | RAD ---
Date of service: 01/25/2019 HISTORY: abd distensoion COMPARISON: None available. TECHNIQUE: 1 view obtained. FINDINGS: BOWEL: Normal. No obstruction. No free air. BONES: Normal. OTHER FINDINGS: Pacemaker device partially visualized. IMPRESSION: No active disease.
[2019-01-26] MEDS: Enoxaparin 30 mg Syringe SC SCH ×2 (09:22→21:24)
[2019-01-26] MEDS: Sacubitril/Valsartan 49-51 Tab PO SCH ×2 (09:23→17:16)
[2019-01-26] MEDS: Potassium Chloride 20 mEq ER Tab PO SCH (09:24)
--- NOTE | 2019-01-26 16:43 | CARD ---
APPROVED REPORT Date of service: 01/26/2019 EXAM: Two-dimensional and M-mode echocardiogram with Doppler and color Doppler. Other Information Quality : GoodRhythm : INDICATION Dyspnea Cardiac Disease: CAD Congestive Heart Failure RISK FACTORS Hypertension 2D DIMENSIONS IVSd1.1 (0.7-1.1cm)LVDd7.4 (3.9-5.9cm) PWd1.1 (0.7-1.1cm)LA [id number] (18-58mL) LVDs7.2 (2.5-4.0cm)FS (%) 2.9 % LVEF (%)11.0 (>50%)LVEF (Anaya's)14.64 % IVC0.00 cm M-Mode DIMENSIONS RVDd1.73 (2.1-3.2cm)Left Atrium (MM)5.68 (2.5-4.0cm) IVSd0.74 (0.7-1.1cm)Aortic Root2.81 (2.2-3.7cm) LVDd8.12 (4.0-5.6cm)Aortic Cusp Exc.1.81 (1.5-2.0cm) PWd0.99 (0.7-1.1cm)FS (%) 14 % LVDs6.97 (2.0-3.8cm)TAPSE13.88 cm LVEF (%)17 (>50%) Mitral Valve MV E Moekpfmd77.0cm/sMV A Krvvclqw81.8cm/sE/A ratio3.0 HVXA082.96 cm/s TDI Lateral E' Peak V6.09cm/sMedial E' Peak V4.16cm/sE/Lateral E'14.8 E/Medial E'21.6 Tricuspid Valve TR Peak Iuiawnuy937cm/sTR Peak Gr.[id number] LEFT VENTRICLE The Left Ventricle is moderately dilated. There is mild concentric left ventricular hypertrophy. Left ventricle systolic function is severely impaired. The Ejection Fraction is - 15%. There is global hypokinesis of the left ventricle. Transmitral Doppler flow pattern is Grade III-reversible restrictive diastolic dysfunction. RIGHT VENTRICLE The right ventricle is moderately dilated. Systolic function is moderately to severely reduced. There is a pacemaker / AICD lead in the right ventricle. Linear echodensities noted on the AICD/Pacer lead (atrial portion)- Small clots cannot be excluded. ATRIA The left atrium is severely dilated. The right atrium is moderately dilated. AORTIC VALVE The aortic valve is normal in structure. There is trace aortic regurgitation. There is no aortic valvular stenosis. MITRAL VALVE The mitral valve is normal in structure. Mitral regurgitation is mild to moderate. TRICUSPID VALVE The tricuspid valve is normal in structure. There is mild to moderate tricuspid regurgitation. Right ventricular systolic pressure is estimated at - 38 mmHg. There is mild pulmonary hypertension. PULMONIC VALVE The pulmonary valve is normal in structure. There is mild pulmonic valvular regurgitation. GREAT VESSELS The aortic root is normal in size. Dilated IVC with poor inspiration collapse is consistent with elevated right atrial pressure. Dilated hepatic vein. PERICARDIAL EFFUSION Questionable trace pericardial effusion. <Conclusion> Severe combined systolic / diastolic dysfunction Right ventricular systolic pressure is estimated at - 38 mmHg compatible with mild pulmonary hypertension. Mitral regurgitation is mild to moderate. There is a pacemaker / AICD lead in the right ventricle. Linear echo - densities noted on the AICD/Pacer lead (atrial portion)- Small clots attached to lead cannot be excluded. Questionable trace pericardial effusion.
[2019-01-27 07:22] LABS: CALCIUM 8.5 mg/dl (8.6-10.4)
[2019-01-27 07:30] VITALS: BP 134/94; PULSE 83; TEMP 97.9; O2SAT 95
[2019-01-27] MEDS: Albuterol-Ipratrop 3 mg / 0.5 (3 ml) UD INH SCH (08:30)
--- NOTE | 2019-01-27 08:30 | CP.PCM.PN ---
Subjective - Date & Time of Evaluation Date of Evaluation: 01/27/19 Time of Evaluation: 08:15 - Subjective Subjective: Pt no complain; almost no cough and no more fatigue Walk on the hallway/ bath room. No CP, no SOB, no edema, no palpitation 2-D Echo - same as of 2016 Objective - Vital Signs/Intake and Output Vital Signs (last 24 hours): Temp Pulse Resp BP Pulse Ox 97.9 F 83 20 134/94 H 95 01/27/19 07:15 01/27/19 07:15 01/27/19 07:15 01/27/19 07:15 01/27/19 07:15 Intake and Output: 01/27/19 01/27/19 06:59 18:59 Intake Total 720 Balance 720 - Medications Medications: Current Medications Albuterol/Ipratropium (Duoneb 3 Mg/0.5 Mg (3 Ml) Ud) 3 ml INH RQID [facility] Last Admin: 01/26/19 21:11 Dose: 3 ml Carvedilol (Coreg) 12.5 mg PO BID [facility] Last Admin: 01/26/19 17:14 Dose: 12.5 mg Doxycycline Hyclate (Doryx) 100 mg PO Q12H [facility]; Protocol Last Admin: 01/27/19 08:14 Dose: 100 mg Enoxaparin Sodium (Lovenox) 30 mg SC Q12 [facility] Last Admin: 01/26/19 21:24 Dose: 30 mg Furosemide (Lasix) 40 mg IVP DAILY [facility] Montelukast Sodium (Singulair) 10 mg PO HS [facility] Last Admin: 01/26/19 21:23 Dose: 10 mg Potassium Chloride (K-Dur 20 Meq Er Tab) 20 meq PO DAILY [facility] Last Admin: 01/26/19 09:24 Dose: 20 meq Sacubitril/Valsartan (Entresto 49 Mg-51 Mg) 1 tab PO BID [facility] Last Admin: 01/26/19 17:16 Dose: 1 tab - Labs Labs: 01/25/19 17:09 01/27/19 06:35 PT 12.1 SECONDS (9.7-12.2) 01/25/19 17:09 INR 1.1 01/25/19 17:09 APTT 32.7 SECONDS (21-34) 01/25/19 17:09 - Constitutional Appears: No Acute Distress - Eye Exam Eye Exam: Normal appearance - ENT Exam ENT Exam: Mucous Membranes Moist - Neck Exam Neck Exam: Full ROM. absent: Lymphadenopathy, Normal Inspection - Cardiovascular Exam Cardiovascular Exam: REGULAR RHYTHM, +S1, +S2. absent: Gallop, JVD, Murmur - GI/Abdominal Exam GI & Abdominal Exam: Soft. absent: Tenderness, Normal Bowel Sounds - Extremities Exam Extremities Exam: Full ROM, Normal Capillary Refill. absent: Calf Tenderness, Joint Swelling Assessment and Plan - Assessment and Plan (Free Text) Assessment: CHF/ Ac [id number] r/o Pneumom hill For repeat CXR and discharge after Stress need f/up in 01/27 Cont meds but inc Coreg 25 mg bID and Entresto 97/103
[2019-01-27] MEDS: Sacubitril/Valsartan 49-51 Tab PO SCH (10:34)
[2019-01-27] MEDS: Potassium Chloride 20 mEq ER Tab PO SCH (10:37)
[2019-01-27] MEDS: Enoxaparin 30 mg Syringe SC SCH (10:42)
--- NOTE | 2019-01-27 13:08 | RAD ---
Date of service: 01/27/2019 HISTORY: F/up on infiltrate vs congestion COMPARISON: No prior. TECHNIQUE: Chest PA and lateral views FINDINGS: LUNGS: Improved aeration of the lung bases. PLEURA: No significant pleural effusion identified. No pneumothorax apparent. CARDIOVASCULAR: No aortic atherosclerotic calcification present. No radiographic findings to suggest acute or significant cardiovascular disease. Position/ configuration of pacemaker OSSEOUS STRUCTURES: No significant abnormalities. VISUALIZED UPPER ABDOMEN: Normal. OTHER FINDINGS: None. IMPRESSION: Improved aeration of the lungs, visual decrease in lower lobe infiltrates. In part this may be due to improved inspiratory effort/two-view study compared to the prior single view.
--- NOTE | 2019-01-27 13:46 | CARD ---
APPROVED REPORT Date of service: 01/25/2019 EKG Measurement Heart [id number] <Conclusion> Normal sinus rhythm Possible Left atrial enlargement Anterior infarct, age undetermined can not be excluded Abnormal ECG
== END 2019-01-27 13:35 | disposition home or self-care (01) ==
LOC: C.ER 15:53 → C.9E 18:33 → C.6T 19:05
PROVIDERS: ADMIT Internal Medicine; ATTEND Internal Medicine
DX: I11.0 Hypertensive heart disease with heart failure (principal); I25.10 Atherosclerotic heart disease of native coronary artery without angina pectoris; I42.0 Dilated cardiomyopathy; I50.9 Heart failure, unspecified; J45.909 Unspecified asthma, uncomplicated; Z79.899 Other long term (current) drug therapy; Z87.01 Personal history of pneumonia (recurrent); Z87.891 Personal history of nicotine dependence; Z95.0 Presence of cardiac pacemaker; G47.33 Obstructive sleep apnea (adult) (pediatric)
CPT/HCPCS: 36415; 71045; 71046; 74019; 80048; 80053; 82550; 82553; 83735; 83880; 84484; 85025; 85610; 85730; 93005; 93306; 94640; 96374; 99285; G0378; J1650; J1940